=== PATIENT | female | born 1995 | race Caucasian/White ===

== ENCOUNTER 2022-06-13 04:10 | Emergency (ER) | payer OTHER, SELFPAY ==
--- NOTE | 2022-06-13 04:32 | ED.CHESTPAIN ---
HPI - Chest Pain General Chief Complaint: Back Pain/Injury Stated Complaint: lower back pain, 8 months Time Seen by Provider: 06/13/22 04:14 Source: patient Mode of arrival: Ambulatory Limitations: no limitations History of Present Illness HPI narrative: Otherwise healthy 27-year-old female. Eight months from a uncomplicated vaginal delivery. She did breastfeed for a period of time afterwards however is not currently . Stated that she has had some irregular menstrual cycles since she delivered. The 1st couple afterwards were normal but then the last 2 have been longer time in between. She has had some lower abdominal discomfort for the past several weeks. She had some spotting within the past 24 hours and then this morning having some lower back discomfort. States it is a dull ache that radiates up her back. She can feel the stretching when she bends forward. She denies any urinary symptoms. She did have an episode of diarrhea this morning but she states that was because she was nervous about come into the emergency department. Review of Systems Constitutional Constitutional: Reports system reviewed and no additional complaints, except as documented Gastrointestinal Gastrointestinal: Reports system reviewed and no additional complaints, except as documented Genitourinary Genitourinary: Reports system reviewed and no additional complaints, except as documented Musculoskeletal Musculoskeletal: Reports system reviewed and no additional complaints, except as documented Integumentary/Breasts Skin/Breast: Reports system reviewed and no additional complaints, except as documented Patient History Medical History Healthy adult Social History Smoking Status: Never smoker Exam Initial Vital Signs Initial Vital Signs: Vital Signs Temperature 98.4 F 06/13/22 04:33 Pulse Rate 73 06/13/22 04:33 Respiratory Rate 18 06/13/22 04:33 Blood Pressure 150/71 H 06/13/22 04:33 Pulse Oximetry 100 06/13/22 04:33 Oxygen Delivery Method 06/13/22 04:33 Const General: cooperative and healthy appearing HENMT Head: normal to inspection and normocephalic Resp Effort & Inspection: normal respiratory effort Auscultation: clear to auscultation bilaterally Cardio Rate: regular rate Rhythm: regular rhythm GI Inspection: normal to inspection and non-distended Other: Her tenderness is very lower abdomen/adnexal equal bilateral. Back/Spine/Pelvis Other: No discomfort with palpation of the thoracic or lumbar spine or paraspinal region Skin General: no rashes or lesions noted Neuro General: patient alert, patient awake and moves all extremities Extrem General: normal to inspection and capillary refill normal Course Orders Ordered: ED Orders 06/13/22 04:40 Urinalysis and Microscopic Stat Vital Signs Vital signs: Vital Signs - 8 hr 06/13/22 04:33 Temperature 98.4 F Pulse Rate 73 Respiratory Rate 18 Blood Pressure 150/71 H Pulse Oximetry 100 Oxygen Delivery Method Room Air MDM - Chest Pain Lab Data Labs: Lab Results 06/13/22 Range/Units 04:40 Urine Color Yellow Urine Appearance Clear Urine pH 5.0 (4.5-8.0) Ur Specific [place] 1.015 (1.000-1.035) Urine Protein Negative (Negative) Urine Glucose (UA) Negative (Negative) g/dL Urine Ketones 1+ H (NEGATIVE) Urine Occult Blood Negative (Negative) Urine Nitrate Negative (Negative) Urine Bilirubin Negative (NEGATIVE) Urine Urobilinogen 0.2 (0.2) E.U./dL Ur Leukocyte Esterase Negative (NEGATIVE) Urine RBC 0-1/hpf (0-5/HPF) Urine WBC 0-1/hpf (0-5/HPF) Ur Squamous Epith Cells None seen (0-5/HPF) Urine Bacteria Occasional (0-1) (None) Ur Culture Indicated? Cult not indicated Point of Care Testing Test Results Negative Urine Dip Bedside Urine Glucose Negative Bedside Urine Bilirubin - Negative Bedside Urine Ketone + 15 Bedside Urine Occult Blood - Negative Bedside Urine Protein - Negative Bedside Urine Urobilinogen - Negative Bedside Urine Nitrite - Negative Bedside Urine Leukocytes - Negative Esterase MDM Narrative Medical decision making narrative: Her urinalysis is negative. test was negative. She is a benign exam. There has been no trauma. Low suspicion for pyelonephritis/UTI. Also have low suspicion for acute intra-abdominal surgical pathology given the nature of her exam today and also the length of time she is been having symptoms. She is having no other vaginal discharge. Low suspicion for PID for her reported history and exam. No indication for radiologic studies. Considered obtaining a pelvic ultrasound however my suspicion for testicular torsion is low. Recommend that we stay with conservative measures to include ibuprofen and Tylenol. Will have patient follow-up with her primary doctor and return to the emergency department for symptoms worsen. Discharge Plan Departure Patient Disposition: Home Clinical Impression: Bilateral lower abdominal pain, Lower back pain Instructions: DI for Abdominal Pain-Adult Activity Restrictions/Additional Instructions: Recommend that you continue with anti-inflammatories such as Motrin. You can take 2-3 tablets 3 times a day. Be sure to take this with food. Return to the emergency department for any new symptoms to include worsening pain, fevers, continued diarrhea or any other worsening symptoms.
[2022-06-13 04:33] VITALS: BP 150/71; PULSE 73; RESP 18; TEMP 36.9; O2SAT 100; BMI 22.4
[2022-06-13 04:56] LABS: Appearance Urine UA CLEAR; Bilirubin Urine UA NEGATIVE (NEGATIVE); Color Urine UA YELLOW; Glucose Urine UA NEGATIVE (Negative); Ketones Urine UA 1+ (NEGATIVE); Leukocyte Esterase Urine UA NEGATIVE (NEGATIVE); Nitrite Urine UA NEGATIVE (Negative); Occult Blood Urine UA NEGATIVE (Negative); Protein Urine UA NEGATIVE (Negative); Specific Gravity Urine UA 1.015 (1.000-1.035); Urobilinogen Urine UA 0.2 E.U./dL (0.2)
[2022-06-13 05:03] LABS: Bacteria Urine Occasional (0-1); Culture Indicated Urine Cult Not Indicated; RBC Urine 0-1/HPF (0-5/HPF); Squamous Epithelial Cell Urine None Seen (0-5/HPF); WBC Urine 0-1/HPF (0-5/HPF)
[2022-06-13] MEDS: IBUPROFEN 400 MG TABLET PO (05:19)
[2022-06-13 05:42] VITALS: BP 132/78; PULSE 80; RESP 19; O2SAT 98
== END 2022-06-13 05:43 | disposition home or self-care (01) ==
PROVIDERS: Emergency Provider Emergency Medicine
DX: R10.32 Left lower quadrant pain (principal); R10.31 Right lower quadrant pain; M54.50 Low back pain, unspecified
CPT/HCPCS: 81001; 81003; 81025; 99282; 99283